=== PATIENT | male | born 1960 | race Caucasian/White ===

== ENCOUNTER → 2018-09-16 | Outpatient (REF) | payer SELFPAY | END | disposition home or self-care (01) | DRG 951 | LOC: LAB 11:25 | PROVIDERS: ATTEND Urology | DX: Z12.5 Encounter for screening for malignant neoplasm of prostate (principal) ==

== ENCOUNTER 2024-05-08 20:59 | Emergency (ER) | payer SELFPAY ==
[~2024-05-08] VITALS: Ht 175.3 cm; Wt 74.0 kg
[2024-05-08] MEDS ORDERED: TAMSULOSIN0.4 MG PO (21:59)
[2024-05-08] MEDS ORDERED: SULFAMETHOXAZOLE W/TRIMETHOPRI 1 COMBO TAB PO ONE (22:20)
[2024-05-08] MEDS ORDERED: LIDOCAINE HCL 2 % JELLY UR ONE (22:55)
[2024-05-08] MEDS ORDERED: MORPHINE SULFATE 4 MG/ML VIAL IV ONE (23:00)
[2024-05-08] MEDS ORDERED: PROMETHAZINE HCL 25 MG/ML AMP IV ONE (23:00)
[2024-05-09 00:56] VITALS: BP 143/79
[2024-05-09 01:00] VITALS: BP 131/75
[2024-05-09 01:15] VITALS: BP 148/80
[2024-05-09] MEDS ORDERED: FAMOTIDINE 10MG/ML 2ML SDV IV ONE (01:25)
[2024-05-09] MEDS ORDERED: LACTATED RINGER'S 1,000 ML IV ONE (01:31)
[2024-05-09] MEDS ORDERED: Levofloxacin 500 mg Premix 100 ML IV ONE (01:40)
[2024-05-09] MEDS ORDERED: STERILE WATER FOR IRRIGATION 1,000 ML BTL IR ONE (02:32)
[2024-05-09 03:19] VITALS: BP 102/73
[2024-05-09] MEDS ORDERED: PROPOFOL 200 MG/20 ML VIAL IV ONE (11:01)
[2024-05-09] MEDS ORDERED: LIDOCAINE HCL 2% 2ML SDV IV ONE (11:01)
== END 2024-05-09 03:10 | disposition home or self-care (01) | DRG 983 ==
LOC: ED 20:59
PROC: 0TJDXZZ Inspection of Urethra, External Approach (ICD-10-PCS; principal; 2024-05-08)
PROC: 0T9D80Z Drainage of Urethra with Drainage Device, Via Natural or Artificial Opening Endoscopic (ICD-10-PCS; 2024-05-09)
DX: N40.1 Benign prostatic hyperplasia with lower urinary tract symptoms (principal); R33.8 Other retention of urine; N36.5 Urethral false passage
CPT/HCPCS: C1769; J1956